=== PATIENT | female | born 1965 | race Caucasian/White ===

== ENCOUNTER → 2017-04-12 | Outpatient (CLI) | payer OTHER | END | disposition home or self-care (01) | LOC: CFH 10:48 | PROVIDERS: ATTEND Specialist | DX: Z12.31 Encounter for screening mammogram for malignant neoplasm of breast (principal) | CPT/HCPCS: 77067 ==

== ENCOUNTER → 2019-05-07 | Outpatient (CLI) | payer OTHER | END | disposition home or self-care (01) | LOC: CFH 08:54 | PROVIDERS: ATTEND Specialist | DX: Z12.31 Encounter for screening mammogram for malignant neoplasm of breast (principal); N64.89 Other specified disorders of breast | CPT/HCPCS: 77067 ==

== ENCOUNTER → 2020-05-09 | Outpatient (CLI) | payer OTHER | END | disposition home or self-care (01) | LOC: CFH 09:29 | PROVIDERS: ATTEND Specialist | DX: Z12.31 Encounter for screening mammogram for malignant neoplasm of breast (principal) | CPT/HCPCS: 77067 ==

== ENCOUNTER 2020-08-01 12:11 | Outpatient (CLI) | payer OTHER | END 2020-08-01 23:59 | disposition home or self-care (01) | LOC: RAD 12:11 | PROVIDERS: ATTEND Family Medicine | DX: R10.11 Right upper quadrant pain (principal) | CPT/HCPCS: 78226; A9537; J2805 ==

== ENCOUNTER → 2020-08-19 | Outpatient (CLI) | payer OTHER | END | disposition home or self-care (01) | LOC: STAR 10:01 | PROVIDERS: ATTEND Surgery | DX: Z20.822 Contact with and (suspected) exposure to COVID-19 (principal); K81.1 Chronic cholecystitis; R94.5 Abnormal results of liver function studies; K82.8 Other specified diseases of gallbladder | CPT/HCPCS: U0003; U0005 ==

== ENCOUNTER 2020-08-25 09:23 | Day surgery (SDC) | payer OTHER ==
[~2020-08-25] VITALS: Ht 154.9 cm; Wt 69.1 kg
[~2020-08-25 09:23] MED LIST: BUPIVACAINE/PF 0.5% ONE; EPINEPHRINE 1 MG/ML, 1ML ONE
[2020-08-25 10:10] VITALS: BP 140/94
[2020-08-25] MEDS ORDERED: CHLORHEXIDINE 15 ML UDC ONE (10:25)
[2020-08-25] MEDS ORDERED: LACTATED RINGERS 1,000 ML IV SCH (10:30)
[2020-08-25] MEDS ORDERED: CHLORHEXIDINE 15 ML UDC PO ONE (10:30)
[2020-08-25] MEDS ORDERED: EPINEPHRINE 1 MG/ML, 1ML ONE (10:48)
[2020-08-25] MEDS ORDERED: BUPIVACAINE/PF 0.5% ONE (10:48)
[2020-08-25] MEDS ORDERED: MIDAZOLAM 1 MG/ML, 2ML ONE (10:50)
[2020-08-25] MEDS ORDERED: FENTANYL PF 250 MCG/5ML ONE (10:52)
[2020-08-25] MEDS ORDERED: PROPOFOL 10 MG/ML, 20ML ONE (11:49)
[2020-08-25] MEDS ORDERED: DEXAMETHASONE 4 MG/ML, 1ML ONE (11:49)
[2020-08-25] MEDS ORDERED: ONDANSETRON 2MG/ML, 2ML ONE (11:49)
[2020-08-25] MEDS ORDERED: SUGAMMADEX 200 MG/2 ML IVPush ONE (11:49)
[2020-08-25] MEDS ORDERED: GLYCOPYRROLATE 0.2MG/1ML, 5ML ONE (11:49)
[2020-08-25] MEDS ORDERED: ROCURONIUM 10MG/ML,5ML ONE (11:49)
[2020-08-25] MEDS ORDERED: NEOSTIGMINE 1 MG/ML, 10ML ONE (11:49)
[2020-08-25] MEDS ORDERED: CEFAZOLIN 1,000 MG ONE (11:49)
[2020-08-25] MEDS ORDERED: SUCCINYLCHOLINE 20 MG/ML, 10ML ONE (11:49)
[2020-08-25] MEDS ORDERED: KETOROLAC 30 MG/1 ML IV PRN (12:00)
[2020-08-25] MEDS ORDERED: MEPERIDINE/PF 25MG/0.5ML IVPush PRN (12:00)
[2020-08-25] MEDS ORDERED: LABETALOL 5MG/ML, 20ML IV PRN (12:00)
[2020-08-25] MEDS ORDERED: HYDROmorphone 2 MG/ML, 1ML IVPush PRN (12:00)
[2020-08-25] MEDS ORDERED: PROMETHAZINE 25 MG/ML, 1ML IV PRN (12:00)
[2020-08-25] MEDS ORDERED: OXYcodone 5 MG/5 ML ORAL.SOL UDC PO PRN (12:00)
[2020-08-25] MEDS ORDERED: hydrALAzine 20 MG/ML, 1ML IV PRN (12:00)
[2020-08-25] MEDS ORDERED: DIAZEPAM 5 MG/ML, 2ML IVPush PRN (12:00)
[2020-08-25] MEDS ORDERED: ALBUTEROL SULFATE 2.5 MG/3 ML NPPB PRN (12:00)
[2020-08-25] MEDS ORDERED: ACETAMINOPHEN 325 MG TABLET PO PRN (12:00)
[2020-08-25] MEDS ORDERED: OXYcodone 5 MG/5 ML ORAL.SOL UDC ONE (12:07)
[2020-08-25] MEDS ORDERED: FENTANYL PF 100 MCG/2ML ONE (12:07)
[2020-08-25] MEDS: FENTANYL PF 100 MCG/2ML IV PRN ×2 (12:13→12:20)
[2020-08-25] MEDS ORDERED: KETOROLAC 30 MG/1 ML ONE (17:09)
== END 2020-08-25 14:05 | disposition home or self-care (01) ==
LOC: OUT 09:23
PROVIDERS: ATTEND Surgery
DX: K81.1 Chronic cholecystitis (principal); K75.3 Granulomatous hepatitis, not elsewhere classified; R94.5 Abnormal results of liver function studies; Z88.0 Allergy status to penicillin; Z72.89 Other problems related to lifestyle; D89.89 Other specified disorders involving the immune mechanism, not elsewhere classified
CPT/HCPCS: 47001; 47562; 88304; 88307; 88313; J0171; J0330; J0690; J1100; J1885; J2250; J2405; J2704; J2710; J3010; J7120